=== PATIENT | female | born 1950 | race Caucasian/White ===

== ENCOUNTER 2017-03-21 05:59 | Day surgery (SDC) | payer MEDICARE, OTHER ==
[~2017-03-21 05:59] MED LIST: Midazolam 1 MG/ML 2 ML SDV ONE; fentaNYL 100 MCG/2 ML SDV ONE
[2017-03-21] MEDS ORDERED: Sodium Chloride 0.9% 10 ML Syringe FLUSH PRN (06:00)
[2017-03-21] MEDS ORDERED: Dextrose 5%-0.45% NaCl 1,000 ML IV SCH (06:30)
[2017-03-21] MEDS ORDERED: fentaNYL 100 MCG/2 ML SDV IV ONE ×3 (06:48→06:50)
[2017-03-21] MEDS ORDERED: Midazolam 1 MG/ML 2 ML SDV IV ONE ×4 (06:48→06:53)
[2017-03-21 10:08] VITALS: BP 134/60
--- NOTE | 2017-03-21 12:38 | OR ---
DATE: 03/21/2017 PROCEDURE: Total colonoscopy. INSTRUMENT USED: [id number] Olympus video colonoscope. PREMEDICATIONS: Fentanyl 100 mcg intravenous, Versed 2.5 mg intravenous. Nasal O2 cannula. The procedure was done under pulse oximetry, BP recording, and hands parter. INDICATION: Screening colonoscopic examination is done for detection of any polypoid lesions and removal, endoscopic hemostasis therapy if needed. DESCRIPTION OF PROCEDURE: Initial rectal exam was unremarkable. Rigid anoscopy was normal. The colonoscope was passed with ease. Numerous scattered diverticula were noted in the distal left colon along with deformity. There was large amount of fecal material, some solid also, aspiration to be done. The colonoscope was passed with ease up to the ileocecal area, photographs were taken of the normal-appearing cecum, identified by double-bulged ileocecal folds. No bleeding was noted from any of the visualized areas at the commencement of the examination. No stricture. No vascular ectasia. No large isolated ulcerations seen. No evidence of diffuse inflammatory bowel disease in the form of friability, contact bleeding, or ulcerations. In the proximal and distal ascending colon, 3 mm sized benign-appearing polyps was noted, photograph was taken of the proximal ascending colon polyp, cold snare polypectomy was done of the 2 polyps identified and sent for histopathology. Probing the proximal sides of folds and flexures, using adequate distention and clearing up the stool material, withdrawal of the scope was made, cecum to rectum time over 6 minutes. No bleeding was noted from any of the visualized areas at the completion of examination. IMPRESSION: 1. Diverticulosis. 2. Diminutive ascending colon polyp. The patient tolerated the procedure well. [facility] /[id number]
== END 2017-03-21 09:40 | disposition home or self-care (01) ==
LOC: DL.ENDO 05:59
PROVIDERS: ATTEND Internal Medicine Gastroenterology
DX: Z12.11 Encounter for screening for malignant neoplasm of colon (principal); D12.2 Benign neoplasm of ascending colon; K57.30 Diverticulosis of large intestine without perforation or abscess without bleeding; F17.210 Nicotine dependence, cigarettes, uncomplicated; E66.09 Other obesity due to excess calories; M19.90 Unspecified osteoarthritis, unspecified site; E78.5 Hyperlipidemia, unspecified; G47.00 Insomnia, unspecified; N60.19 Diffuse cystic mastopathy of unspecified breast; E03.9 Hypothyroidism, unspecified; Z90.710 Acquired absence of both cervix and uterus; Z98.41 Cataract extraction status, right eye; Z98.42 Cataract extraction status, left eye; Z90.49 Acquired absence of other specified parts of digestive tract; Z79.82 Long term (current) use of aspirin; Z88.1 Allergy status to other antibiotic agents; Z79.899 Other long term (current) drug therapy
CPT/HCPCS: 45385; J2250; J3010; J7042; 88305

== ENCOUNTER 2021-05-11 00:20 | Emergency (ER) | payer MEDICARE, OTHER ==
[2021-05-11] MEDS ORDERED: EPINEPHrine 1 MG/ML SDV IM ONE (00:32)
[2021-05-11] MEDS ORDERED: methylPREDNISolone Sodium Succinate 125 MG/2 ML SDV IVPUSH ONE (00:32)
--- NOTE | 2021-05-11 00:37 | EDM.PDOC ---
<Arya Hui - Last Filed: 05/11/21 09:47> ED HPI GENERAL MEDICAL PROBLEM - General Stated Complaint: AMBULANCE Time Seen by Provider: 05/11/21 00:35 - Related Data Allergies Allergy/AdvReac Type Severity Reaction Status Date / Time gentamicin Allergy Cannot Verified 03/21/17 06:10 Remember niacin Allergy Cannot Verified 03/21/17 06:10 Remember Home Meds: Home Meds Ascorbic Acid 500 mg PO DAILY 03/20/17 [History] Calcium Carb/Vit D3/Minerals [Calcium 600+D Plus Minerals] 2 tab PO BID 03/20/17 [History] Levothyroxine Sodium [Synthroid] 137 mcg PO DAILY 03/20/17 [History] Psyllium Husk/Aspartame [Metamucil Fiber Singles Packet] 1 pkt PO DAILY 03/20/17 [History] Simvastatin [Zocor] 10 mg PO BEDTIME 03/20/17 [History] Departure - Departure Time of Disposition: 09:20 Disposition: Home, Self-Care 01 Clinical Impression: Bee sting-induced anaphylaxis Qualifiers: Encounter type: initial encounter Injury intent: undetermined intent Qualified Code(s): T63.444A - Toxic effect of venom of bees, undetermined, initial encounter - Discharge Information Instructions: Bee, Wasp, or Hornet Sting, Adult Forms: ED Department Discharge Additional Instructions: pepcid 20mg daily x 5 day prednsione taper benadryl 25mg every 4 hours x 24 hours then every 4 hours as needed, continue if any itching or symptoms still present follow up with primary care on friday keep benadryl with at all times avoid exposure to bees or hornets <Miguelina Gale - Last Filed: 05/16/21 02:11> ED HPI GENERAL MEDICAL PROBLEM - General Source of Information: Reports: Patient, EMS History Limitations: Reports: No Limitations - History of Present Illness INITIAL COMMENTS - FREE TEXT/NARRATIVE: ED via [facility] with report of bee sting around 11pm tonight, stated red/ flushed SOB, , tunneled vision earlier, O2 enroute, No prior reaction. Took 50mg of Benadryl and [place] [employer] gave additional 25 mg. Tiered response with [facility] cancelled by [facility]. Past Medical History HEENT History: Reports: Cataract Cardiovascular History: Reports: Other (See Below) Other Cardiovascular History: Hyperlipidemia Respiratory History: Reports: None Genitourinary History: Reports: None Musculoskeletal History: Reports: Other (See Below) Other Musculoskeletal History: DJD - Degenerative joint disease Neurological History: Reports: Other (See Below) Other Neuro History: Insomnia Psychiatric History: Reports: None Endocrine/Metabolic History: Reports: Hypothyroidism, Obesity/BMI 30+, Other (See Below) Other Endocrine/Metabolic History: Hyperglycemia Hematologic History: Reports: None Immunologic History: Reports: None Oncologic (Cancer) History: Reports: None Dermatologic History: Reports: None - Infectious Disease History Infectious Disease History: Reports: Chicken Pox, Measles, Mumps - Past Surgical History HEENT Surgical History: Reports: Cataract Surgery Cardiovascular Surgical History: Reports: None GI Surgical History: Reports: Other (See Below) Other GI Surgeries/Procedures: Left segment total colectomy for "diverticulitis" Female Surgical History: Reports: Hysterectomy, Other (See Below) Other Female Surgeries/Procedures: Fibrocystic breast disease. biopsy's x3.. benign. Musculoskeletal Surgical History: Reports: None Social & Family History - Caffeine Use Caffeine Use: Reports: Soda, Tea Caffeine Use Comment: one coke per week ED ROS ALLERGIC REACTION - Review of Systems Review Of Systems: Comprehensive ROS is negative, except as noted in HPI. ED EXAM GENERAL NO PERIP PULSE - Physical Exam Exam: See Below Exam Limited By: No Limitations General Appearance: Alert, Mild Distress (Hands, face puffy, skin red) Ears: Normal External Exam Nose: Normal Inspection Throat/Mouth: Normal Inspection Head: Atraumatic, Normocephalic Neck: Normal Inspection Cardiovascular: Normal Peripheral Pulses, Regular Rate, Rhythm GI/Abdominal: Normal Bowel Sounds, Soft Extremities: Normal Range of Motion Neurological: Alert, Oriented, Normal Cognition Psychiatric: Normal Affect, Normal Mood Skin Exam: Warm, Dry, Erythema, Rash (few hives extremities, greater densit on trunk), Other (stinger present left inner thumb, removed with forceps). No: Normal Color Course - Vital Signs Last Recorded V/S: Last Vital Signs Temp 97.7 F 05/11/21 06:15 Pulse 88 05/11/21 07:45 Resp 20 05/11/21 07:45 BP 150/81 H 05/11/21 07:45 Pulse Ox 91 L 05/11/21 07:45 - Orders/Labs/Meds Meds: Medications Discontinued Medications Generic Name Dose Route Start Last Admin Trade Name Rosa PRN Reason Stop Dose Admin Diphenhydramine HCl 25 mg 05/11/21 03:05 05/11/21 03:05 Diphenhydramine 25 Mg Tab PO 05/11/21 03:06 25 mg ONETIME ONE Administration Epinephrine HCl 0.3 mg 05/11/21 00:32 05/11/21 00:55 Epinephrine 1 Mg/Ml Sdv IM 05/11/21 00:33 0.3 mg ONETIME ONE Administration Famotidine 20 mg 05/11/21 03:08 05/11/21 03:05 Famotidine 20 Mg/2 Ml Sdv IVPUSH 05/11/21 03:09 20 mg ONETIME ONE Administration Methylprednisolone Sodium Succinate 125 mg 05/11/21 00:32 05/11/21 00:56 Methylprednisolone Sodium Succinate 125 Mg/2 Ml Sdv IVPUSH 05/11/21 00:33 125 mg ONETIME ONE Administration Methylprednisolone Sodium Succinate 40 mg 05/11/21 06:05 05/11/21 06:10 Methylprednisolone Sodium Succinate 40 Mg/1 Ml Sdv IVPUSH 05/11/21 06:06 40 mg ONETIME ONE Administration - Radiology Interpretation Free Text/Narrative:: Decreased redness, Hives improved, lungs clear, Departure - Departure Condition: Good - Discharge Information *PRESCRIPTION DRUG MONITORING PROGRAM REVIEWED*: No *COPY OF PRESCRIPTION DRUG MONITORING REPORT IN PATIENT TERRA: No
[2021-05-11] MEDS ORDERED: diphenhydrAMINE 25 MG Tab PO ONE (03:05)
[2021-05-11] MEDS ORDERED: Famotidine 20 MG/2 ML SDV IVPUSH ONE (03:08)
[2021-05-11] MEDS ORDERED: methylPREDNISolone Sodium Succinate 40 MG/1 ML SDV IVPUSH ONE (06:05)
[2021-05-11 09:56] VITALS: BP 150/81; PULSE 88
== END 2021-05-11 09:20 | disposition home or self-care (01) ==
LOC: DL.ED 00:20
DX: T63.441A Toxic effect of venom of bees, accidental (unintentional), initial encounter (principal); E78.5 Hyperlipidemia, unspecified; E03.9 Hypothyroidism, unspecified; E66.9 Obesity, unspecified; Z68.35 Body mass index [BMI] 35.0-35.9, adult; Z88.1 Allergy status to other antibiotic agents; Z79.899 Other long term (current) drug therapy
CPT/HCPCS: 96372; 96374; 96375; 96376; 99283; A9270; J0171; J2920; J2930; J3490

== ENCOUNTER 2022-07-29 08:00 | Emergency (ER) | payer MEDICARE, OTHER | END 2022-07-29 18:40 | disposition home or self-care (01) | LOC: DL.ED 08:00 → EDSTATUS 08:01 → DL.ED 18:40 | DX: S80.01XA Contusion of right knee, initial encounter (principal); W11.XXXA Fall on and from ladder, initial encounter | CPT/HCPCS: 73562-RT; 99283 ==

== ENCOUNTER 2024-04-01 06:27 | Day surgery (SDC) | payer MEDICARE, OTHER ==
[2024-04-01] MEDS ORDERED: Midazolam 1 MG/ML 2 ML SDV IV ONE (06:28)
[2024-04-01] MEDS ORDERED: fentaNYL 100 MCG/2 ML SDV IV ONE (06:28)
[2024-04-01] MEDS: Dextrose 5%-0.45% NaCl 1,000 ML IV SCH (07:02)
[2024-04-01] MEDS: fentaNYL 100 MCG/2 ML SDV IV ONE ×2 (07:37→07:38)
[2024-04-01] MEDS: Midazolam 1 MG/ML 2 ML SDV IV ONE ×3 (07:38→07:41)
[2024-04-01 09:33] VITALS: BP 130/72; PULSE 76
== END 2024-04-01 09:30 | disposition home or self-care (01) ==
LOC: DL.ENDO 06:27
PROVIDERS: ATTEND Internal Medicine Gastroenterology
DX: Z12.11 Encounter for screening for malignant neoplasm of colon (principal); D12.2 Benign neoplasm of ascending colon; K57.30 Diverticulosis of large intestine without perforation or abscess without bleeding; K64.4 Residual hemorrhoidal skin tags; Z85.038 Personal history of other malignant neoplasm of large intestine
CPT/HCPCS: 45385; 88305; J2250; J3010; J7042